=== PATIENT | male | born 1945 | race Caucasian/White ===

== ENCOUNTER 2018-02-02 23:14 | Emergency (ER) | payer MEDICARE, OTHER ==
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
[2018-02-02 23:41] LABS: BASO % 0.3 % (0-6); EOS % 0.6 % (0-6); GRAN % 72.9 % (47-80); HEMATOCRIT 42.6 % (42.0-52.0); MEAN CORPUSCULAR HEMOGLOBIN 30.9 pg (27-33); MEAN CORPUSCULAR HGB CONC 32.9 g/dl (32-36); MEAN PLATELET VOLUME 9.8 fl (7.4-10.4); MONO % 10.2 % (0-9); PLATELET COUNT 284 K/uL (130-400); RED BLOOD COUNT 4.53 M/uL (4.40-5.70); RED CELL DISTRIBUTION WIDTH 13.2 % (11.5-14.5)
[2018-02-02 23:53] LABS: PARTIAL THROMBOPLASTIN TIME 28.3 SECONDS (24.5-39.1); PROTHROMBIN TIME (PATIENT) 10.3 SECONDS (9.5-12.1)
[2018-02-02 23:54] LABS: BILIRUBIN,TOTAL 0.5 mg/dL (0.2-1.0); CREATININE 1.4 mg/dL (0.7-1.2)
[2018-02-02 23:55] LABS: TOTAL PROTEIN 6.2 g/dL (6.6-8.7)
[2018-02-03] LABS: ALB/GLOB RATIO 1.7 (1.1-1.8); ALBUMIN 3.9 g/dL (4.0-5.0)
[2018-02-03] MEDS ORDERED: ASPIRIN 325 MG TABLET PO ONE (00:05)
[2018-02-03 00:10] LABS: THYROID STIMULATING HORMONE 2.89 uIU/mL (0.270-4.20)
== END 2018-02-03 01:03 | disposition short-term general hospital (02) ==
LOC: ER 23:14
DX: G45.9 Transient cerebral ischemic attack, unspecified (principal); I10 Essential (primary) hypertension; Z86.73 Personal history of transient ischemic attack (TIA), and cerebral infarction without residual deficits; Z79.01 Long term (current) use of anticoagulants
CPT/HCPCS: 70450; 80053; 84443; 85025; 85610; 85730; 93005; 93010; 99285

== ENCOUNTER 2018-07-21 09:47 | Emergency (ER) | payer MEDICARE, OTHER ==
[2018-07-21 10:01] LABS: URINE APPEARANCE CLEAR; URINE BILIRUBIN NEGATIVE (NEGATIVE); URINE BLOOD TRACE-I (NEGATIVE); URINE COLOR YELLOW; URINE GLUCOSE (UA) NEGATIVE (NEGATIVE); URINE KETONE TRACE (NEGATIVE); URINE LEUKOCYTE ESTERASE NEGATIVE (NEGATIVE); URINE NITRITE NEGATIVE (NEGATIVE); URINE PROTEIN NEGATIVE (NEGATIVE); URINE UROBILINOGEN 0.2 E.U./dL (0.20 - 1.00)
[2018-07-21 10:06] LABS: URINE EPITHELIAL CELLS NONE SEEN (FEW); URINE WBC NONE SEEN (0-2/hpf)
[2018-07-21] MEDS ORDERED: SODIUM CHLORIDE 0.9% 500 ML IV ONE (10:19)
[2018-07-21] MEDS ORDERED: ONDANSETRON HCL IV 4 MG/2 ML VIAL IV ONE (10:19)
[2018-07-21] MEDS ORDERED: HYDROMORPHONE HCL 2 MG/ML VIAL IVP ONE (10:22)
--- NOTE | 2018-07-21 10:26 | Emergency Department Record ---
History of Present Illness - General Chief complaint: Flank Pain Stated complaint: KIDNEY STONE Time Seen by Provider: 07/21/18 10:18 Source: Patient Mode of Arrival: Ambulatory Limitations: No limitations - History of Present Illness Initial comments: The patient is here due to the acute onset of R flank pain 10 hours ago. The pain is sharp and stabbing and is associated with nausea and vomiting. The patient has a long hx of similar pain with kidney stones and he has had multiple in the past. MD Complaint: Other Onset/Timin -: Hour(s) Location: Right flank Radiation: RLQ Severity scale (1-10): 9 Consistency: Constant - Related Data Previous Rx's Medication Instructions Recorded Amoxicillin/Potassium Clav 1 tab PO BID #14 tab 07/21/18 [Augmentin 875-125 Tablet] Hydrocodone/Acetaminophen [[place] 1 each PO QID #12 tablet 07/21/18 5-325 Tablet] Tamsulosin HCl [Flomax] 0.4 mg PO DAILY #7 cap.er.24h 07/21/18 Allergies Allergy/AdvReac Type Severity Reaction Status Date / Time No Known Drug Allergies Allergy Verified 07/21/18 10:05 Travel Screening - Travel/Exposure Within Last 30 Days Have you traveled within the last 30 days?: No - Travel/Exposure Within Last Year Have you traveled outside the [place] in the last year?: No - Additonal Travel Details Have you been exposed to anyone with a communicable illness?: No - Travel Symptoms Symptom Screening: None Review of Systems Constitutional: Denies: Chills, Fever Eyes: Denies: Eye discharge ENT: Denies: Congestion Respiratory: Denies: Cough, Dyspnea Cardiovascular: Denies: Arrhythmia Endocrine: Denies: Fatigue Gastrointestinal: Reports: Abdominal pain, Nausea, Vomiting. Denies: Diarrhea Genitourinary: Denies: Dysuria Musculoskeletal: Denies: Arthralgia Skin: Denies: Bruising Past Medical History - SOCIAL HISTORY Smoking Status: Never smoker Alcohol Use: Rare Drug Use: None - RESPIRATORY Hx Respiratory Disorders: No - CARDIOVASCULAR Hx Cardio Disorders: Yes Hx Hypertension: Yes Comment:: high cholesterol, atrial-septal defect and on plavix - NEURO Hx Neuro Disorders: Yes Hx CVA: Yes (2011, 2013) Hx Headaches: No Hx of Migraines: No Comment:: per pt hx CVA, possible TIA/CVA 01/2018 and 02/2018 - GI Hx GI Disorders: Yes Hx Reflux: Yes Hx Hiatal Hernia: Yes Hx Irritable Bowel: Yes Hx Ulcer: Yes - Hx Genitourinary Disorders: Yes Hx Kidney Stones: Yes Hx Prostate Problems: Yes - ENDOCRINE Hx Endocrine Disorders: Yes Hx Thyroid Disease: Yes - MUSCULOSKELETAL Hx Musculoskeletal Disorders: Yes Hx Arthritis: Yes - PSYCH Hx Psych Problems: No Hx Anxiety: No Hx Depression: No - HEMATOLOGY/ONCOLOGY Hx Hematology/Oncology Disorders: Yes Hx Anemia: Yes (pernicious anemia) Comment:: plavix Family Medical History Any Significant Family History?: No Hx Cancer: Father, Children Hx Heart Disease: Mother Physical Exam - General General Appearance: Alert, Oriented x3, Cooperative, No acute distress - Head Head exam: Atraumatic, Normocephalic, Normal inspection - Eye Eye exam: Normal appearance, PERRL, EOMI - ENT Throat exam: Normal inspection. negative: Tonsillar erythema, Tonsillar exudate - Neck Neck exam: Normal inspection, Full ROM. negative: Tenderness - Respiratory Respiratory exam: Normal lung sounds bilaterally. negative: Respiratory distress - Cardiovascular Cardiovascular Exam: Regular rate, Normal rhythm, Normal heart sounds - GI/Abdominal GI/Abdominal exam: Soft, Normal bowel sounds. negative: Rebound, Rigid, Tenderness (There is no lower abdominal tenderness.) - Extremities Extremities exam: Normal inspection, Full ROM, Normal capillary refill. negative: Tenderness - Back Back exam: Reports: Normal inspection - Neurological Neurological exam: Alert, Normal gait. negative: Abnormal gait, Motor sensory deficit - Skin Skin exam: negative: Rash Course Vital Signs 07/21/18 10:00 Temperature 97.9 F Pulse Rate [ 65 Pulse Ox Probe] Respiratory 18 Rate Blood Pressure 171/102 [Left Arm] Pulse Ox 97 - Reevaluation(s) Reevaluation #1: The patient is doing very well at this time. He states his pain is much improved and almost gone. I did discuss the CT results with the patient and the need for F/U with Urology. He is to drink plenty of fluids and to return for any worsening symptoms. The CT does demonstrate possible Diverticulitis of the Sigmoid colon but since the patient is not symptomatic I clinically doubt that diagnosis. 07/21/18 11:31 Medical Decision Making - Data Complexity MDM Data: Labs Ordered and/or Reviewed, X-Ray Ordered and/or Reviewed - Lab Data Result diagrams: 07/21/18 10:43 07/21/18 10:43 Lab Results 07/21/18 Range/Units 09:55 Urine Color Yellow Urine Appearance Clear Urine pH 5.0 (5.0-8.0) Ur Specific [place] >= 1.030 (1.002-1.030) Urine Protein Negative (NEGATIVE) Urine Glucose (UA) Negative (NEGATIVE) Urine Ketones Trace H (NEGATIVE) Urine Blood Trace-i (NEGATIVE) Urine Nitrite Negative (NEGATIVE) Urine Bilirubin Negative (NEGATIVE) Urine Urobilinogen 0.2 (0.20 - 1.00) E.U./dL Ur Leukocyte Esterase Negative (NEGATIVE) Urine RBC 3 - 6 (NONE SEEN) Urine WBC None seen (0-2/hpf) Ur Epithelial Cells None seen (FEW) - Radiology Data Radiology results: Report reviewed (CT: 6x4 mm distal R ureter stone with hydro. Poss sigmoid colon diverticulitis.) Disposition Disposition: Discharge Clinical Impression: Ureteral stone with hydronephrosis Disposition: Home, Self-Care Condition: (2) Stable Instructions: Flank Pain (ED) Additional Instructions: Please drink plenty of fluids and use the [place] for pain and take the Flomax and Augmentin as directed. Please see the Urologist as directed and return to the ER for any worsening symptoms. Also see your family doctor for recheck due to the possible Diverticulitis and chronic renal insufficiency and also Dr. Ramirez in the Specialty clinic for the Umbilical hernia. Prescriptions: Amoxicillin/Potassium Clav [Augmentin 875-125 Tablet] 1 tab PO BID #14 tab Hydrocodone/Acetaminophen [[place] 5-325 Tablet] 1 each PO QID #12 tablet Tamsulosin HCl [Flomax] 0.4 mg PO DAILY #7 cap.er.24h Referrals: [facility] Special[facility] [Provider Group] ISABELL BUSBY M.D. [MEDICAL DOCTOR] - Forms: Patient Portal Access Quality - Quality Measures Quality Measures: N/A - Blood Pressure Screening View Details: Yes Does Patient Have Any of the Following: No Blood Pressure Classification: Hypertensive Reading Systolic Measurement: 144 Diastolic Measurement: 95 Screening for High Blood Pressure: < First Hypertensive BP, F/U Documented > [ G8950] First Hypertensive Follow-up Interventions: Referral to alternative/primary care provider.
[2018-07-21 10:47] LABS: HEMATOCRIT 42.5 % (42.0-52.0); HEMOGLOBIN 14.2 gm/dl (14.0-18.0); MEAN CELL VOLUME 91.4 fl (81-97); MEAN CORPUSCULAR HEMOGLOBIN 30.5 pg (27-33); MEAN CORPUSCULAR HGB CONC 33.4 g/dl (32-36); MEAN PLATELET VOLUME 9.9 fl (7.4-10.4); PLATELET COUNT 230 K/uL (130-400); RED BLOOD COUNT 4.65 M/uL (4.40-5.70); RED CELL DISTRIBUTION WIDTH 13.8 % (11.5-14.5); WHITE BLOOD COUNT W/O DIFF 12.1 K/uL (4.2-12.2)
[2018-07-21 10:56] LABS: PLATELET ESTIMATE NORMAL (NORMAL)
[2018-07-21 11:03] LABS: CREATININE 1.5 mg/dL (0.7-1.2)
--- NOTE | 2018-07-22 12:45 | CT SCAN REPORT ---
EXAM: CT SCAN OF THE ABDOMEN AND PELVIS WITHOUT CONTRAST HISTORY: RIGHT FLANK PAIN WITH NAUSEA SINCE MIDNIGHT. PREVIOUS HISTORY OF RENAL CALCULI. TECHNIQUE: Standard CT imaging of the abdomen and pelvis was performed without contrast. Comparison: 10/09/13. FINDINGS: There is dependent atelectasis or scarring at both lung bases. A small hiatal hernia is present. A small cyst is again noted within the left hepatic lobe. The liver parenchyma is otherwise normal. The gallbladder, biliary tree, pancreas, spleen, and adrenal glands are normal. There is moderate to severe right hydronephrosis with associated perinephric and periureteral fat stranding. This is secondary to a 6 x 4 mm calculus within the right ureter at the level of the iliac vessels. There are 8-10additional nonobstructing stones within the left kidney. The largest measures 6 mm. There are 12-15 nonobstructing stones within the left kidney the largest of which measures 6 mm. There is no left hydronephrosis or obstructing calculus. Atherosclerotic changes are present within the aorta with no aneurysm. There is no retroperitoneal lymphadenopathy. There are scattered diverticula throughout the colon and greatest within the sigmoid region. There is mild focal wall thickening of the distal sigmoid colon with mild adjacent fat stranding consistent with acute diverticulitis. No other focal inflammatory changes are identified. There is no pneumoperitoneum or ascites. The urinary bladder is normal. The prostate gland is mildly enlarged. There is a fat containing umbilical hernia measuring 5.3 x 4.2 x 5.2 cm. The opening measures 1.8 cm in diameter. Extensive degenerative changes are present within the lumbar spine. There are no acute osseous abnormalities. IMPRESSION: 1. A 6 X 4 MM CALCULUS IS PRESENT WITHIN THE DISTAL RIGHT URETER AT THE LEVEL OF THE ILIAC VESSELS. THIS RESULTS IN MODERATE TO SEVERE RIGHT HYDRONEPHROSIS WITH ASSOCIATED PERINEPHRIC AND PERIURETERAL FAT STRANDING. 2. NUMEROUS NONOBSTRUCTING INTRARENAL CALCULI BILATERALLY. 3. EXTENSIVE COLONIC DIVERTICULOSIS WITH MILD ACUTE DIVERTICULITIS WITHIN THE DISTAL SIGMOID REGION. 4. FAT CONTAINING UMBILICAL HERNIA. 5. SMALL HIATAL HERNIA. 6. ADDITIONAL CHRONIC FINDINGS ABOVE. JOB NUMBER: [id number] [facility]
== END 2018-07-21 12:00 | disposition home or self-care (01) ==
LOC: ER 09:47
DX: N13.2 Hydronephrosis with renal and ureteral calculous obstruction (principal); R11.2 Nausea with vomiting, unspecified; I10 Essential (primary) hypertension; Z87.442 Personal history of urinary calculi
CPT/HCPCS: 99284 ×2; 96374; 96375; 96361; 80048; 81001; 85027; 74176; J2405; J1170

== ENCOUNTER 2018-07-24 15:40 | Emergency (ER) | payer MEDICARE, OTHER ==
--- NOTE | 2018-07-24 16:14 | Emergency Department Record ---
History of Present Illness - General Chief complaint: Nausea, Vomiting, Diarrhea Stated complaint: UPSET STOMACH,VOMITING,CONSTIPATED Time Seen by Provider: 07/24/18 15:44 Source: Patient, RN notes reviewed Mode of Arrival: Ambulatory - History of Present Illness Initial comments: patient states he is vomiting every hour and no BM's for 6 days and recent diagnosis of kidney stone and he said he took some pain pills but none today and he has a umbilical hernia with an appointment to see Dr. Ramirez on sunday and rectal exam no fecal impaction and no stool felt with examing finger brown mucous hemoccult negative. patient states he hasn't been straining his urine in the last couple of days. Onset/Timin -: Days(s) Consistency: Intermittent Improves with: None Worsens with: None - Related Data Previous Rx's Medication Instructions Recorded Amoxicillin/Potassium Clav 1 tab PO BID #14 tab 07/21/18 [Augmentin 875-125 Tablet] Hydrocodone/Acetaminophen [[place] 1 each PO QID #12 tablet 07/21/18 5-325 Tablet] Tamsulosin HCl [Flomax] 0.4 mg PO DAILY #7 cap.er.24h 07/21/18 Ondansetron HCl [Zofran] 4 mg PO Q4HR #20 tablet 07/24/18 Polyethylene Glycol 3350 [Miralax] 17 gm PO DAILY #1 bottle 07/24/18 Allergies Allergy/AdvReac Type Severity Reaction Status Date / Time No Known Drug Allergies Allergy Verified 07/21/18 10:05 Travel Screening - Travel/Exposure Within Last 30 Days Have you traveled within the last 30 days?: No - Travel/Exposure Within Last Year Have you traveled outside the [place] in the last year?: No - Additonal Travel Details Have you been exposed to anyone with a communicable illness?: No - Travel Symptoms Symptom Screening: None Review of Systems Reviewed: No additional complaints except as noted below Constitutional: Reports: As per HPI. Denies: Chills, Fever, Malaise, Night sweats, Weakness, Weight change Eyes: Reports: As per HPI. Denies: Eye discharge, Eye pain, Photophobia, Vision change ENT: Reports: As per HPI. Denies: Congestion, Dental pain, Ear pain, Epistaxis , Hearing loss, Throat pain Respiratory: Reports: As per HPI. Denies: Cough, Dyspnea, Hemoptysis, Stridor, Wheezes Cardiovascular: Reports: As per HPI. Denies: Arrhythmia, Chest pain, Dyspnea on exertion, Edema, Murmurs, Orthopnea, Palpitations, Paroxysmal nocturnal dyspnea, Rheumatic Fever, Syncope Endocrine: Reports: As per HPI. Denies: Fatigue, Heat or cold intolerance, Polydipsia, Polyuria Gastrointestinal: Reports: As per HPI. Denies: Abdominal pain, Constipation, Diarrhea, Hematemesis, Hematochezia, Melena, Nausea, Vomiting Genitourinary: Reports: As per HPI. Denies: Dysuria, Frequency, Hematuria, Incontinence, Retention, Testicular pain, Testicular mass, Urgency Musculoskeletal: Reports: As per HPI. Denies: Arthralgia, Back pain, Gout, Joint swelling, Myalgia, Neck pain Skin: Reports: As per HPI. Denies: Bruising, Change in color, Change in hair/ nails, Lesions, Pruritus, Rash Neurological: Reports: As per HPI. Denies: Abnormal gait, Confusion, Headache, Numbness, Paresthesias, Seizure, Tingling, Tremors, Vertigo, Weakness Psychiatric: Reports: As per HPI. Denies: Anxiety, Auditory hallucinations, Depression, Homicidal thoughts, Suicidal thoughts, Visual hallucinations Hematological/Lymphatic: Reports: As per HPI. Denies: Anemia, Blood Clots, Easy bleeding, Easy bruising, Swollen glands Past Medical History - SOCIAL HISTORY Smoking Status: Never smoker Alcohol Use: None Drug Use: None - RESPIRATORY Hx Respiratory Disorders: No - CARDIOVASCULAR Hx Cardio Disorders: Yes Hx Hypertension: Yes Comment:: high cholesterol, atrial-septal defect and on plavix - NEURO Hx Neuro Disorders: Yes Hx CVA: Yes (2011, 2013) Hx Headaches: No Hx of Migraines: No Comment:: per pt hx CVA, possible TIA/CVA 01/2018 and 02/2018 - GI Hx GI Disorders: Yes Hx Reflux: Yes Hx Hiatal Hernia: Yes Hx Irritable Bowel: Yes Hx Ulcer: Yes - Hx Genitourinary Disorders: Yes Hx Kidney Stones: Yes Hx Prostate Problems: Yes - ENDOCRINE Hx Endocrine Disorders: Yes Hx Thyroid Disease: Yes - MUSCULOSKELETAL Hx Musculoskeletal Disorders: Yes Hx Arthritis: Yes - PSYCH Hx Psych Problems: No Hx Anxiety: No Hx Depression: No - HEMATOLOGY/ONCOLOGY Hx Hematology/Oncology Disorders: Yes Hx Anemia: Yes (pernicious anemia) Comment:: plavix Family Medical History Any Significant Family History?: Yes Hx Cancer: Father, Children Hx Heart Disease: Mother Physical Exam - General General Appearance: Alert, Oriented x3, Cooperative, Mild distress - Head Head exam: Normal inspection - Eye Eye exam: Normal appearance, PERRL Pupils: Normal accommodation - ENT ENT exam: Normal exam, Mucous membranes moist, Normal external ear exam, Normal orophraynx, TM's normal bilaterally Ear exam: Normal external inspection. negative: External canal tenderness Nasal Exam: Normal inspection. negative: Discharge, Sinus tenderness Mouth exam: Normal external inspection, Tongue normal Teeth exam: Normal inspection. negative: Dental caries Throat exam: Normal inspection. negative: Tonsillar erythema, Tonsillar exudate - Neck Neck exam: Normal inspection, Full ROM. negative: Tenderness - Respiratory Respiratory exam: Normal lung sounds bilaterally. negative: Respiratory distress - Cardiovascular Cardiovascular Exam: Regular rate, Normal rhythm, Normal heart sounds - GI/Abdominal GI/Abdominal exam: Soft, Normal bowel sounds, Tenderness (umbilical pain on palpation and cyanosis of umbilical hernia.) - Rectal Rectal exam: Heme (-) stool, Normal rectal tone, Other. negative: Black stool, Bloody stool, Decreased rectal tone, Fecal impaction, Mass - exam: Deferred - Extremities Extremities exam: Normal inspection, Full ROM, Normal capillary refill. negative: Tenderness - Back Back exam: Reports: Normal inspection, Full ROM. Denies: Muscle spasm, Rash noted, Tenderness - Neurological Neurological exam: Alert, Normal gait, Oriented X3, Reflexes normal - Psychiatric Psychiatric exam: Normal affect, Normal mood - Skin Skin exam: Dry, Intact, Normal color, Warm Course Vital Signs 07/24/18 15:49 Temperature 98.3 F Pulse Rate 90 Respiratory 20 Rate Blood Pressure 125/110 Pulse Ox 97 - Reevaluation(s) Reevaluation #1: patient's flank pain is gone and no appetie 07/24/18 17:30 Reevaluation #2: 07/24/18 17:39 if worse told him to call the urologist office or go to the ED at [facility] if worse and he can call me if not getting anywhere. Reevaluation #3: patient is feeling better 07/24/18 17:44 Medical Decision Making - Data Complexity MDM Data: X-Ray Ordered and/or Reviewed (CT showing the kidney stone is more distal by the right UV junction and a second stone in the ureter right new. diverticulitis is gone and no new abnormality) - Lab Data Result diagrams: 07/24/18 16:20 07/24/18 16:20 Disposition Clinical Impression: Kidney stone on right side, Ureteral stone with hydronephrosis Vomiting Qualifiers: Vomiting type: unspecified Vomiting Intractability: non-intractable Nausea presence: with nausea Qualified Code(s): R11.2 - Nausea with vomiting, unspecified Disposition: Home, Self-Care Condition: (1) Good Instructions: Acute Nausea and Vomiting (ED) Additional Instructions: follow up with Dr. Kilgore as scheduled or if worse go to [facility] ED. Prescriptions: Ondansetron HCl [Zofran] 4 mg PO Q4HR #20 tablet Polyethylene Glycol 3350 [Miralax] 17 gm PO DAILY #1 bottle Forms: Patient Portal Access Time of Disposition: 17:44 Quality - Quality Measures Quality Measures: N/A - Blood Pressure Screening Does Patient Have Any of the Following: No Blood Pressure Classification: Hypertensive Reading Systolic Measurement: 125 Diastolic Measurement: 110 Screening for High Blood Pressure: < Pre-Hypertensive BP, F/U Documented > [ G8950] Pre-Hypertensive Follow-up Interventions: Referral to alternative/primary care provider.
[2018-07-24] MEDS ORDERED: 0.9 % SODIUM CHLORIDE 1000ML 1,000 ML IV PRN (16:16)
[2018-07-24] MEDS ORDERED: ONDANSETRON HCL IV 4 MG/2 ML VIAL IV ONE (16:16)
[2018-07-24 16:30] LABS: BASO % 0.3 % (0-6); EOS % 1.4 % (0-6); GRAN % 72.8 % (47-80); HEMATOCRIT 42.2 % (42.0-52.0); HEMOGLOBIN 14.2 gm/dl (14.0-18.0); LYMPH % 16.4 % (16-45); MEAN CELL VOLUME 91.5 fl (81-97); MEAN CORPUSCULAR HEMOGLOBIN 30.8 pg (27-33); MEAN CORPUSCULAR HGB CONC 33.6 g/dl (32-36); MEAN PLATELET VOLUME 10.2 fl (7.4-10.4); MONO % 9.1 % (0-9); PLATELET COUNT 255 K/uL (130-400); RED BLOOD COUNT 4.61 M/uL (4.40-5.70); RED CELL DISTRIBUTION WIDTH 13.6 % (11.5-14.5); WHITE BLOOD COUNT W/O DIFF 7.9 K/uL (4.2-12.2)
[2018-07-24 16:44] LABS: BILIRUBIN,TOTAL 0.9 mg/dL (0.2-1.0); CREATININE 1.6 mg/dL (0.7-1.2); TOTAL PROTEIN 6.9 g/dL (6.6-8.7)
[2018-07-24 16:49] LABS: ALBUMIN 3.8 g/dL (4.0-5.0); BILIRUBIN,DIRECT 0.2 mg/dL (0-0.3)
--- NOTE | 2018-07-26 07:50 | CT SCAN REPORT ---
EXAM: CT OF THE ABDOMEN AND PELVIS HISTORY: LEFT LOWER QUADRANT PAIN WITH CONSTIPATION. TECHNIQUE: Noncontrast CT of the abdomen and pelvis was obtained. Comparison: CT of the abdomen and pelvis 07/21/18. FINDINGS: The tiny 2 mm nodule seen at the lateral right lung base is unchanged. The lung bases are otherwise unremarkable. There is a small hiatal hernia again identified unchanged. There is moderate right hydronephrosis. This appears similar to the patient's previous examination. The right ureter is dilated to the right ureterovesical junction. There is a 5 x 3 mm calculus in the distal right ureter at the right ureterovesical junction. This is more distal in location than on the previous exam. There is a second right ureteral calculus which is located approximately 3 cm above the right ureterovesical junction. This calculus measures about 3 mm in size. No other right ureteral calculi seen. There is no left ureteral calculus or hydronephrosis. There are multiple bilateral nonobstructing intrarenal calculi. There is a low density hepatic lesion unchanged probably representing a cyst. The spleen is unremarkable. No pancreatic mass or inflammatory change. The bile ducts are not dilated and there are no calcified gallstones. No adrenal lesion seen. There is no aortic aneurysm. No periaortic mass or adenopathy identified. Diverticulosis is present throughout the colon. No CT evidence for diverticulitis. No pelvic mass or abscess. No free air or free fluid. There is a fat containing umbilical hernia. Arthritic changes are seen in the lower lumbar spine and sacroiliac joints. The appendix is unremarkable. There is some perinephric fat stranding on the right which has decreased from the previous exam. IMPRESSION: 1. 5 X 3 MM CALCULUS IN THE DISTAL RIGHT URETER AT THE RIGHT URETEROVESICAL JUNCTION WHICH IS MORE DISTAL IN LOCATION THAN ON THE PREVIOUS STUDY. 2. A SECOND CALCULUS IS SEEN IN THE DISTAL RIGHT URETER ABOUT 3 CM PROXIMAL TO THE RIGHT URETEROVESICAL JUNCTION. 3. MODERATE RIGHT HYDRONEPHROSIS SIMILAR TO THE PREVIOUS STUDY. THERE HAS BEEN DECREASE IN THE RIGHT PERINEPHRIC FAT STRANDING. 4. BILATERAL NONOBSTRUCTING INTRARENAL CALCULI. 5. DIVERTICULOSIS WITHOUT CT EVIDENCE FOR DIVERTICULITIS. FAT STRANDING AND DIVERTICULITIS SEEN PREVIOUSLY IN THE REGION OF THE SIGMOID COLON NO LONGER IDENTIFIED. 6. ADDITIONAL CHRONIC FINDINGS ABOVE. JOB NUMBER: [id number] [facility]
== END 2018-07-24 18:15 | disposition home or self-care (01) ==
LOC: ER 15:40
DX: N13.2 Hydronephrosis with renal and ureteral calculous obstruction (principal); R11.2 Nausea with vomiting, unspecified; R19.7 Diarrhea, unspecified; I10 Essential (primary) hypertension; Z87.442 Personal history of urinary calculi; Z86.73 Personal history of transient ischemic attack (TIA), and cerebral infarction without residual deficits
CPT/HCPCS: 74176; 80048; 80076; 83690; 85025; 96361; 96374; 99284; J2405

== ENCOUNTER 2018-08-05 07:02 | Day surgery (SDC) | payer MEDICARE, OTHER ==
[~2018-08-05 07:02] MED LIST: ACETAMINOPHEN 1,000 MG/100 ML BTL IV ONE; CEFAZOLIN 2 Gram 2 GM/50 ML BAG IVPB ONE
[2018-08-05] MEDS ORDERED: HYDROCODONE/APAP 5/325MG TABLET PO ONE (07:03)
[2018-08-05] MEDS ORDERED: PROPOFOL 10 MG/ML VIAL IV ONE (07:03)
[2018-08-05] MEDS ORDERED: FENTANYL PF 100MCG/2ML VIAL IV ONE (07:03)
[2018-08-05] MEDS ORDERED: SEVOFLURANE 250 ML INH ONE (07:03)
[2018-08-05] MEDS ORDERED: LIDOCAINE 2% MDV (20MG/ML) 20ML VIAL IV ONE (07:03)
[2018-08-05] MEDS ORDERED: KETOROLAC 30 MG/ML VIAL IVP ONE (07:03)
[2018-08-05] MEDS ORDERED: MEPERIDINE PCA 10 MG/ML VIAL IV ONE (07:03)
[2018-08-05] MEDS ORDERED: BUPIVACAINE 0.25% W/EPI MPF 30ML VIAL IVP ONE (07:03)
[2018-08-05] MEDS ORDERED: MIDAZOLAM HCL 2MG/2ML VIAL IV ONE ×2 (07:03)
[2018-08-05] MEDS ORDERED: BUPIVACAINE 0.25% W/EPI MPF 30ML VIAL SQ ONE (08:43)
--- NOTE | 2018-08-06 15:01 | Operative Note ---
DATE OF SURGERY: 08/05/2018 Surgeon: Esteban Ramirez D.O. Referring physician: Margarito Acosta D.O. PREOPERATIVE DIAGNOSIS: Incarcerated umbilical hernia. POSTOPERATIVE DIAGNOSIS: Incarcerated umbilical hernia. OPERATION: Open umbilical herniorrhaphy with mesh. Anesthesia: General. Indication: The patient is a 18-year-old male who presented with a moderate to large size incarcerated umbilical hernia. We did discuss repair, the risks, benefits, and alternatives. The risks include bleeding, infection, or acute or chronic pain recurrence. He understood this fully. The consent was signed, questions were answered. PROCEDURE: He was taken to the operating room and placed in the supine position. General anesthesia was administered per the Department of Anesthesia. The patient's periumbilical region was prepped and draped in sterile fashion. At this time, a medical timeout was performed. He did receive preoperative antibiotics as well as DT prophylaxis. At this time the periumbilical region was anesthetized with a total of 10 mL of 0.25% Sensorcaine with epinephrine. A 4 cm curvilinear infraumbilical incision was made. This was carried down to the anterior rectus fascia. The skin was dissected free from the underlying hernia sac. Clean circumferential fascial edges were obtained. The hernia sac was amputated and shown to contain incarcerated omentum. The hernia defect was about 2 cm in size. At this time, an 8 cm ventralex mesh was obtained. This was placed in the intraperitoneal position. The hernia defect was closed primarily with 0 Vicryl. The tails overlapped the fascia and sutured in with 2-0 Vicryl. The skin was tacked down to the fascia with 3-0 Vicryl. The skin was closed with 3-0 and 4-0 Vicryl. Dermabond was placed. He was taken to the recovery room in satisfactory condition. FINDINGS AT THE TIME OF SURGERY: Incarcerated umbilical hernia containing omentum. CC: Dr. Margarito DE JESUS
== END 2018-08-05 11:00 | disposition home or self-care (01) ==
LOC: SUR 07:02
PROVIDERS: ATTEND Surgery
DX: K42.0 Umbilical hernia with obstruction, without gangrene (principal); I10 Essential (primary) hypertension; E78.00 Pure hypercholesterolemia, unspecified; Z79.01 Long term (current) use of anticoagulants; K21.9 Gastro-esophageal reflux disease without esophagitis; Z86.73 Personal history of transient ischemic attack (TIA), and cerebral infarction without residual deficits
CPT/HCPCS: 49587; 00840; J1885; J3010; J0690; J2175

== ENCOUNTER 2018-08-26 10:49 | Day surgery (SDC) | payer MEDICARE, OTHER ==
[2018-08-26] MEDS ORDERED: LIDOCAINE 2% MDV (20MG/ML) 20ML VIAL IV ONE (10:50)
[2018-08-26] MEDS ORDERED: FENTANYL PF 100MCG/2ML VIAL IV ONE (10:50)
[2018-08-26] MEDS ORDERED: PROPOFOL 10 MG/ML VIAL IV ONE (10:50)
--- NOTE | 2018-08-27 09:00 | Operative Note ---
DATE OF SURGERY: 08/26/2018 OPERATION: ESOPHAGOGASTRODUODENOSCOPY with multiple biopsies. INDICATION: Chronic gastroesophageal reflux with pyrosis. The patient also with episodic cervical dysphagia although he states this is clinically improved of late. Upper endoscopy is performed at this time for further evaluation. He did have previous esophagram suggesting cervical spine spurring with extrinsic compression on the cervical esophagus. ANESTHESIA: Intravenous sedation was administered by the department of anesthesiology and included Diprivan titrated to effect. PROCEDURE: Following informed consent from this alert individual, including a discussion of the risks and benefits of the procedure and an opportunity for the patient to ask questions, the patient was in the left lateral decubitus position. The Olympus [id number] video endoscope was inserted into the esophagus without resistance. The cervical esophagus did have some extrinsic compression. It was difficult to say if this was from the cervical spine or pulsating vessel. Nevertheless, the lumen was compromised by less than 1/3. The mucosa itself appeared to be normal to the level of the GE junction. At this point, there were some very slight irregularities noted to the GE junction and for this reason, biopsies were taken. Apparently, he did have previous biopsy suggesting intestinal metaplasia in a focal fashion. Below the GE junction, was a small hiatal hernia which was free from mucosa changes. The subdiaphragmatic stomach was entered and found to be unremarkable except for some mild erythema at the antrum and pylorus. Biopsies were taken. Duodenal bulb, sweep, and descending duodenum were examined in a serial fashion and found to be normal. The endoscope was then withdrawn back into the body of the stomach where retroflexion accomplished following air insufflation again revealed a small hiatal hernia but was otherwise unremarkable. After biopsies were taken from the stomach, a second set of biopsies was taken from the GE junction to evaluate for possible Koo's epithelium. The endoscope was then withdrawal. The patient tolerated the procedure well and was returned to the recovery area in stable condition. IMPRESSION: 1. Mild antral gastritis, biopsies taken. 2. Small hiatal hernia. 3. Irregular Z line, biopsies taken. 4. Extrinsic compression as described above at the cervical esophagus. RECOMMENDATION: The patient will continue on acid blockade therapy at this time. Further recommendations may be forthcoming pending results of biopsy. He might need to take acid blockade twice daily if in fact his pyrosis is occurring despite once-a-day treatment. Followup will also be with Dr. Tyrell Acosta. As always, thank you for allowing me to participate in the care of your patient. CC: Margarito Acosta, DO KELLERD
== END 2018-08-26 12:54 | disposition home or self-care (01) ==
LOC: HOP 10:49
PROVIDERS: ATTEND Internal Medicine Gastroenterology
DX: K21.9 Gastro-esophageal reflux disease without esophagitis (principal); R12 Heartburn; R13.19 Other dysphagia; K44.9 Diaphragmatic hernia without obstruction or gangrene; K29.70 Gastritis, unspecified, without bleeding; K22.2 Esophageal obstruction; K31.89 Other diseases of stomach and duodenum; I10 Essential (primary) hypertension; E78.00 Pure hypercholesterolemia, unspecified; I63.9 Cerebral infarction, unspecified
CPT/HCPCS: 43239; 00731; 88305; J3010

== ENCOUNTER 2019-04-28 10:14 | Day surgery (SDC) | payer MEDICARE, OTHER ==
[2019-04-28] MEDS ORDERED: PROPOFOL 10 MG/ML VIAL IV ONE (10:15)
[2019-04-28] MEDS ORDERED: LIDOCAINE 2% MDV (20MG/ML) 20ML VIAL IV ONE (10:15)
--- NOTE | 2019-04-29 07:40 | Operative Note ---
DATE: 04/28/2019 OPERATION: COLONOSCOPY to the cecum. INDICATION: Family history of colon cancer (father). The patient presents at this time for high-risk screening. His last examination was 5 years ago. ANESTHESIA: Intravenous sedation was administered by the department of anesthesiology and included Diprivan titrated to effect. PROCEDURE: Following informed consent from this alert individual including a discussion of the risks and benefits of the procedure and an opportunity for the patient to ask questions, the patient was in the left lateral decubitus position. A digital rectal examination was performed. No abnormalities were noted. Following this, the Olympus [id number] video colonoscope was inserted into the rectum without resistance. The rectal mucosa had a normal appearance with normal folds and distensibility. The colonoscope was advanced up through the colon to the level of the cecum. Scattered diverticula were noted throughout the left colon. No polyps or tumors were seen upon antegrade inspection. The cecum was defined by noting the appendiceal orifice and ileocecal valve. Colon preparation was adequate. From the base of the cecum, the colonoscope was then slowly withdrawn. No changes were noted except for extensive diverticulosis in the left colon. Retroflexion in the rectum was endoscopically unremarkable. The instrument was straightened and removed. The patient tolerated the procedure well and was returned to the recovery area in stable condition. IMPRESSION: 1. Left colonic diverticulosis. 2. Otherwise unremarkable colonoscopy to the cecum. RECOMMENDATIONS: The patient was advised to have recheck colonoscopy due to family history of colon cancer in 5 years' time. Followup will be with Dr. Tyrell Acosta. As always, thank you for allowing me to participate in the care of your patient. NEAL
== END 2019-04-28 12:43 | disposition home or self-care (01) ==
LOC: HOP 10:14
PROVIDERS: ATTEND Internal Medicine Gastroenterology
DX: Z12.11 Encounter for screening for malignant neoplasm of colon (principal); K57.30 Diverticulosis of large intestine without perforation or abscess without bleeding; Z80.0 Family history of malignant neoplasm of digestive organs; I10 Essential (primary) hypertension; E78.00 Pure hypercholesterolemia, unspecified; Z79.01 Long term (current) use of anticoagulants
CPT/HCPCS: 00812; G0105

== ENCOUNTER 2019-07-06 08:08 | Emergency (ER) | payer MEDICARE, OTHER ==
[2019-07-06] MEDS ORDERED: ONDANSETRON HCL IV 4 MG/2 ML VIAL IV ONE (08:33)
[2019-07-06] MEDS ORDERED: 0.9 % SODIUM CHLORIDE 1,000 ML BAG IV ONE (08:33)
[2019-07-06 08:44] LABS: ABSOLUTE NEUTROPHIL COUNT 13.12; BASO % 0.2 % (0-6); EOS % 0.2 % (0-6); GRAN % 77.3 % (47-80); HEMATOCRIT 37.2 % (42.0-52.0); LYMPH % 15.4 % (16-45); MEAN CELL VOLUME 93.5 fl (81-97); MEAN CORPUSCULAR HGB CONC 32.3 g/dl (32-36); MEAN PLATELET VOLUME 10.7 fl (7.4-10.4); MONO % 6.9 % (0-9); PLATELET COUNT 273 K/uL (130-400); RED BLOOD COUNT 3.98 M/uL (4.40-5.70); RED CELL DISTRIBUTION WIDTH 13.8 % (11.5-14.5)
--- NOTE | 2019-07-06 08:44 | Emergency Department Record ---
History of Present Illness - General Chief complaint: Rectal bleeding Stated complaint: LIGHTHEADED Time Seen by Provider: 07/06/19 08:15 Source: Patient, Family () Mode of Arrival: Wheelchair Limitations: No limitations - History of Present Illness Initial comments: Pt to the ED from home with his by car for evaluation of bloody stool. Pt states he was up thru the night with 3 episodes of stooling, not diarrhea. No lights on so did not see if there was blood. This AM stool with soft bloody stool with bright red blood. Pt has some hx of firm stool and constipation with straining. No hx of fissure. Pt is taking Plavix for prior stroke. No aspirin. Pt has colonoscopy at this facility on 04-28-19 report reviewed with "some diverticulosis but no evidence of cancer to the Cecum". Pt has some nausea without vomiting this AM which is "an everyday thing with my reflux". He has no abdominal pain. Hx of Prenicious anemia for which he is on oral vitamins with monthly shots for supplementation. complaint: Gross hematochezia Onset/Timin -: Hour(s) Radiation: None Quality: Painless Improves with: None Worsens with: None Context: Blood thinners, Other Associated Symptoms: Weakness Treatments Prior to Arrival: None - Related Data Allergies Allergy/AdvReac Type Severity Reaction Status Date / Time No Known Drug Allergies Allergy Verified 07/06/19 08:17 Travel/Exposure Screening - Travel/Exposure Within Last 30 Days Have you traveled within the last 30 days?: No - Travel/Exposure Within Last Year Have you traveled outside the [place] in the last year?: No - Additonal Travel/Exposure Details Have you been exposed to anyone with a communicable illness?: No - Travel Symptoms Symptom Screening: None Review of Systems Constitutional: Denies: Chills, Fever, Weakness Eyes: Denies: Photophobia ENT: Denies: Congestion Respiratory: Denies: Cough, Dyspnea, Wheezes Cardiovascular: Denies: Arrhythmia, Chest pain, Palpitations Endocrine: Denies: Fatigue, Polyuria Gastrointestinal: Reports: Diarrhea, Hematochezia, Nausea. Denies: Abdominal pain, Vomiting Genitourinary: Denies: Dysuria, Frequency Musculoskeletal: Denies: Back pain Skin: Denies: Bruising, Rash Neurological: Denies: Confusion, Headache, Tingling Psychiatric: Denies: Anxiety Hematological/Lymphatic: Reports: Anemia Past Medical History - SOCIAL HISTORY Smoking Status: Never smoker Alcohol Use: None Drug Use: None - RESPIRATORY Hx Respiratory Disorders: No - CARDIOVASCULAR Hx Cardio Disorders: Yes Hx Hypertension: Yes Comment:: high cholesterol, atrial-septal defect and on plavix - NEURO Hx Neuro Disorders: Yes Hx CVA: Yes (2011, 2013) Hx of Migraines: No Hx TIA: Yes - GI Hx GI Disorders: Yes Hx Reflux: Yes Hx Hiatal Hernia: Yes Hx Irritable Bowel: Yes Hx Ulcer: Yes - Hx Genitourinary Disorders: Yes Hx Kidney Stones: Yes Hx Prostate Problems: Yes - ENDOCRINE Hx Endocrine Disorders: Yes Hx Thyroid Disease: Yes - MUSCULOSKELETAL Hx Musculoskeletal Disorders: Yes Hx Arthritis: Yes - PSYCH Hx Psych Problems: No Hx Anxiety: No Hx Depression: No - HEMATOLOGY/ONCOLOGY Hx Hematology/Oncology Disorders: Yes Hx Anemia: Yes (pernicious anemia) Family Medical History Any Significant Family History?: Yes Hx Cancer: Father, Children Hx Heart Disease: Mother Physical Exam - General General Appearance: Alert, Oriented x3, Cooperative, Mild distress - Head Head exam: Atraumatic, Normal inspection - Eye Eye exam: Normal appearance, PERRL - ENT ENT exam: Mucous membranes moist Ear exam: Normal external inspection Nasal Exam: Normal inspection - Neck Neck exam: Normal inspection, Full ROM. negative: Lymphadenopathy - Respiratory Respiratory exam: Normal lung sounds bilaterally. negative: Chest wall tenderness, Respiratory distress, Rhonchi - Cardiovascular Cardiovascular Exam: Regular rate, Normal rhythm. negative: Tachycardia Peripheral Pulses: 2+: Radial (R), Radial (L) - GI/Abdominal GI/Abdominal exam: Soft, Normal bowel sounds. negative: Distended, Guarding, Rebound, Tenderness - Rectal Rectal exam: Bloody stool. negative: Fecal impaction, Hemorrhoids, Tenderness - exam: Deferred - Extremities Extremities exam: Normal inspection. negative: Tenderness - Back Back exam: Reports: Normal inspection - Neurological Neurological exam: Alert, Normal gait, Oriented X3 - Psychiatric Psychiatric exam: Normal affect, Normal mood. negative: Anxious - Skin Skin exam: Normal color. negative: Rash Course Vital Signs 07/06/19 08:17 Temperature 97.2 F L Pulse Rate 83 Respiratory 18 Rate Blood Pressure 113/71 Pulse Ox 96 - Reevaluation(s) Reevaluation #1: 07/06/19 09:05 Pt exam with gross blood per rectum. Small fissure anterior. No mass on rec isidro. Pt with recent normal colonoscopy 2 months ago. On Plavix for prior stroke. Hb drop 2 grams in [address] Acosta who knows the patient well. Plan is for home with office recheck in AM to recheck Hb. Pt to Hole Plavix until directed to resume by Dr. Acosta. They are invited to return to the ED at anytime if issues at home with pain, increased bleeding, ELIA, CP. Pt and agree with plan for home. Admission was discussed and offered for observation. They choose home at this time. Procedures - EKG Initial Date: 07/06/19 (n) Time: 09:28 EKG: Normal EKG Medical Decision Making - Management Options MDM Management: Additional Work-up Planned (e.g. ADM/Transfer/OP Study) - Data Complexity MDM Data: Labs Ordered and/or Reviewed, X-Ray Ordered and/or Reviewed, EKG Ordered and/or Reviewed, Independent Visualization of Image, Tracing, or Specim en, Decision to Obtain Old Record, Review and Summary of Old Record Discussed - Lab Data Result diagrams: 07/06/19 08:20 07/06/19 08:20 - Radiology Data Radiology results: Image reviewed -: Radiology Exam Interpreted by Myself No A/f levels - Medical Decision Making Plan fo radmission for serial Hb testing due to rectal bleeding with antiplt therapy. Disposition Disposition: Discharge Clinical Impression: Antiplatelet or antithrombotic long-term use GI bleed Qualifiers: GI bleed type/associated pathology: anorectal hemorrhage Qualified Code(s): K62.5 - Hemorrhage of anus and rectum Leukocytosis, unspecified Qualifiers: Leukocytosis type: unspecified Qualified Code(s): D72.829 - Elevated white blood cell count, unspecified Disposition: Home, Self-Care Condition: (2) Stable Instructions: Rectal Bleeding (ED) Additional Instructions: HOLD you Plavix until directed to resume by Dr. Acosta. No Aspirin or NSAID meds rest and increase fluids. See Dr. Acosta in office tomorrow AM without fail to recheck your hemoglobin. RETURN to the ED at anytime if worse bleeding, pain, or concern. Forms: Patient Portal Access Time of Disposition: 09:25 Quality - Quality Measures Quality Measures: N/A - Blood Pressure Screening Does Patient Have Any of the Following: No Blood Pressure Classification: Normal BP Reading Systolic Measurement: 113 Diastolic Measurement: 71 Screening for High Blood Pressure: < Normal BP, F/U Not Required > [[id number]]
[2019-07-06 08:45] LABS: MEAN CORPUSCULAR HEMOGLOBIN 30.1 pg (27-33)
[2019-07-06 08:58] LABS: CREATININE 1.3 mg/dL (0.7-1.2)
[2019-07-06 09:33] LABS: ABO GROUP O; ANTIBODY SCREEN NEGATIVE (NEGATIVE); RH TYPE POSITIVE
--- NOTE | 2019-07-06 10:19 | RADIOLOGY REPORT ---
EXAMINATION: Acute Abdomen Series Complete EXAM DATE: 07/06/2019 10:02 AM TECHNIQUE: Upright and supine abdomen with frontal view chest INDICATION: bloody stool COMPARISON: None ENCOUNTER: Not applicable CHEST FINDINGS: Heart and vessels: Normal. Mediastinum: Unremarkable. Lungs: Normal. Pleural space: Likely small left pleural effusion. Bones: Unremarkable. ABDOMEN FINDINGS: Free Intraperitoneal Air: None. Bowel: Normal. Abnormal Calcifications: None. Bones: Unremarkable. Other Findings: None. IMPRESSION 1. Normal bowel gas pattern. 2. Likely small left pleural effusion. Dictated by: Suresh Gama MD on 07/06/2019 10:16 AM. .
== END 2019-07-06 09:56 | disposition home or self-care (01) ==
LOC: ER 08:08
DX: K92.1 Melena (principal); R53.1 Weakness; D72.829 Elevated white blood cell count, unspecified; R11.0 Nausea; D51.0 Vitamin B12 deficiency anemia due to intrinsic factor deficiency; I10 Essential (primary) hypertension; Z79.02 Long term (current) use of antithrombotics/antiplatelets
CPT/HCPCS: 74022; 80048; 85025; 86850; 86900; 86901; 93005; 93010; 96374; 99285; J2405; J7030